=== PATIENT | male | born 1950 | race Caucasian/White ===

== ENCOUNTER 2016-07-25 05:46 | Inpatient (IN) | payer MEDICARE, MEDICAID ==
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
[~2016-07-25] VITALS: Ht 171.4 cm; Wt 79.7 kg
[2016-07-25] VITALS (16 sets, daily range): BP systolic 115–154; BP diastolic 57–91; PULSE 49–113; RESP 14–23; O2SAT 94–100
[~2016-07-25 05:46] MED LIST: AMLO2.5T PO; ASPI-973 PO; Lactated Ringer's 1,000 ML IV ONE; METF1000 PO; METO50TA3 PO; PRAV20TA2 PO
[2016-07-25] MEDS ORDERED: CeFAZolin Inj 2 GM in IV Premix 1 EACH IV ONE (06:00)
[2016-07-25] MEDS ORDERED: Lactated Ringer's 1,000 ML IV ONE ×2 (06:28→08:41)
[2016-07-25] MEDS ORDERED: Acetaminophen IV 1,000 MG in IV Premix 1 EACH IV ONE (06:40)
[2016-07-25 07:02] LABS: Mean Corpuscular Hemoglobin 29.1 pg (27.0-35.0); Mean Corpuscular Volume 86.5 fL (81-100)
[2016-07-25] MEDS ORDERED: Lactated Ringer's 1,000 ML IV SCH (08:32)
[2016-07-25] MEDS ORDERED: Lactated Ringer's 500 ML IV PRN (08:32)
[2016-07-25] MEDS ORDERED: EPHEDrine Sulfate 50 mg/mL Inj IM PRN (08:35)
[2016-07-25] MEDS ORDERED: Labetalol 5 mg/mL 4 mL Inj IV PRN (08:35)
[2016-07-25] MEDS ORDERED: hydrOXYzine Inj 25 MG/1 mL SDV IM PRN (08:35)
[2016-07-25] MEDS ORDERED: Ondansetron 2 mg/mL 2 mL Inj IVPUSH PRN ×2 (08:35→13:20)
[2016-07-25] MEDS ORDERED: Phenylephrine 10,000 mCg/mL Inj IVPUSH PRN (08:35)
[2016-07-25] MEDS ORDERED: EPHEDrine Sulfate 50 mg/mL Inj IVPUSH PRN (08:35)
[2016-07-25] MEDS ORDERED: Atropine 0.4 mg/mL Inj IVPUSH PRN (08:35)
[2016-07-25] MEDS ORDERED: hydrALAZINE 20 mg/mL Inj IVPUSH PRN (08:35)
[2016-07-25] MEDS ORDERED: metroNIDAZOLE Inj 500 MG in IV Premix 1 EACH IV ONE (09:30)
[2016-07-25] MEDS ORDERED: metroNIDAZOLE 500 mg/100 mL NS Premix IV ONE (09:31)
--- NOTE | 2016-07-25 10:16 | DRSVH ---
PROCEDURE: X-RAY CHEST ONE VIEW ([id number]) INDICATIONS: surg hx of smoking patient to arrive @ 0545 TECHNIQUE: One view of the chest was acquired. COMPARISON: [facility], , CHEST 1VW (PORTABLE), 08/24/2010, 7:34. FINDINGS: Surgical changes and devices: Stable positioning of single chamber left chest AICD. Lungs and pleura: No pleural effusions or pneumothorax. Lungs are clear. Mediastinum: Mediastinal contours appear normal. Heart size is normal. Bones and chest wall: No suspicious bony lesions. Overlying soft tissues appear unremarkable. IMPRESSION: No acute cardiopulmonary disease. Dictated by: Arturo BUCHANAN Interpreted: Joselin Rueda MD on 07/25/2016 at 10:15 Transcribed by: ANGELI on 07/25/2016 at 10:15 Approved by: Joselin Rueda M.D. on 07/25/2016 at 16:28
[2016-07-25] MEDS: fentaNYL-PF 50 mCg/mL 2 mL Inj IVPUSH PRN ×2 (13:35→13:46)
[2016-07-25] MEDS: HYDROmorphone 1 mg/mL Inj IVPUSH PRN ×2 (14:05→14:30)
--- NOTE | 2016-07-25 14:21 | PCM.ANEP1 ---
Post Anesthesia Phase 1 PACU Phase 1 Assessment Vital Signs Vital Signs Date Time Temp Pulse Resp B/P Pulse Ox O2 Delivery O2 Flow Rate FiO2 07/25/16 14:14 57 14 152/67 95 Room Air 07/25/16 14:05 58 15 154/85 94 Room Air 07/25/16 13:45 36.0 49 14 140/57 100 Simple Mask 8 07/25/16 13:40 49 14 135/66 100 Simple Mask 8 07/25/16 13:35 57 15 100 Simple Mask 8 07/25/16 13:30 51 15 127/59 100 Simple Mask 8 07/25/16 13:25 52 16 128/57 100 Simple Mask 8 07/25/16 13:23 36.3 60 17 115/89 100 Simple Mask 8 07/25/16 06:52 36 57 17 132/74 96 Room Air Anesthetic Administered: GA Level of Alertness: Sleepy, easy to arouse GREENE's with Equal Strength: No Pain: No Nausea or Vomiting: No Oxygen Delivery: Simple Mask Lungs: Normal Air Movement Guillermo Sparks MD Jul 25, 2016 14:20
[2016-07-25] MEDS: Insulin Human REGular 300 Unit/3 mL Inj SUBQ SCH ×2 (14:30→21:20)
--- NOTE | 2016-07-25 14:45 | NUR ---
Arrived on Unit Patient arrived on floor from PACU in stable condition. Patient transported in bed. A&Ox3. No dressings on incisions. Dermabond used on incisions. AIR/OCEAN EXPORT CLERK set up 0.2/6 minutes/2mg 1 hour and 0.3 bolus. WARRANT SERVER. Reports 03/14 abdominal pain. Contacted RT for IS. Patient up to chair with SBA. Brother at bedside. Call light and tray table within reach. Will continue to monitor patient hourly. Addendum: 07/25/16 at 1853 by GETACHEW STEELE RN Chava brandon. LR at 125 mL/hr
[2016-07-25] MEDS ORDERED: Ondansetron 2 mg/mL 2 mL Inj ONE (14:56)
[2016-07-25] MEDS ORDERED: Rocuronium 10 mg/mL 5 mL Inj ONE (14:56)
[2016-07-25] MEDS ORDERED: HYDROmorphone 2 mg/mL Inj ONE (14:56)
[2016-07-25] MEDS ORDERED: Propofol 10,000 mCg/mL 20 mL Inj ONE (14:56)
[2016-07-25] MEDS ORDERED: fentaNYL-PF 50 mCg/mL 2 mL Inj ONE (14:56)
[2016-07-25] MEDS: Lactated Ringer's 1,000 ML IV SCH ×2 (15:46→21:20)
[2016-07-25] MEDS: HYDROmorphone PCA 0.2 mg/mL 30 mL Inj IV PRN (15:47)
[2016-07-25] MEDS ORDERED: metroNIDAZOLE Inj 500 MG in IV Premix 1 EACH IV SCH (16:30)
[2016-07-25] MEDS ORDERED: CeFAZolin Inj 2 GM in IV Premix 1 EACH IV SCH (16:50)
[2016-07-25] MEDS: CeFAZolin Inj 2 GM in Dextrose 5% 50 ML IV SCH (18:26)
[2016-07-26] VITALS (12 sets, daily range): BP systolic 112–130; BP diastolic 68–79; PULSE 64–97; RESP 18–22; O2SAT 93–98
--- NOTE | 2016-07-26 01:05 | OP ---
[address] [address] OPERATIVE REPORT PATIENT: ESDRAS GARCIA : 1950 MR#: [id number] ADMIT: 07/25/2016 JOB ID: [id number] DATE OF SURGERY: 07/25/2016 PREOPERATIVE DIAGNOSIS(ES): Left renal mass. POSTOPERATIVE DIAGNOSIS(ES): Left renal mass. PROCEDURE PERFORMED: 1. Exploratory laparoscopy. 2. Left open radical nephrectomy (modifier 22 is being requested for severe desmoplastic reaction, requiring over 100% longer procedure time without consideration for the partial colectomy). 3. Left partial colectomy. SURGEON: Harriett Serrano MD. APPARATUS LINEMAN: 1. Mary Alice Calhoun PA-C (at the beginning and termination of the procedure). 2. Daryl Bennett MD, general surgeon. FINDINGS: Large left renal mass adherent with severe desmoplastic reaction anteriorly with the colon, superiorly to the spleen, and posteriorly to the posterior body wall. ANESTHESIA: General. ESTIMATED BLOOD LOSS: 300 mL. DRAINS: Larsen catheter to the bladder. SPECIMENS: 1. Left kidney and mass. 2. Splenic flexure of the colon. 3. Frozen section from the rind adherent to the colon. COMPLICATIONS: Enterotomy. CONDITION: Stable. INDICATION FOR PROCEDURE: The patient is a 66-year-old man with a 10 cm left upper pole renal mass. After reviewing his options the patient wished to undergo a left radical nephrectomy. DESCRIPTION OF PROCEDURE: After informed consent was obtained, the patient was taken to the operating room. A time-out was performed, identifying correct patient, surgical site, and procedure. General anesthesia was smoothly induced. A Larsen catheter was placed in the patient's bladder and set to dependent drainage. He was placed in the right lateral decubitus position and all pressure points were identified and appropriately padded. He was positioned over a gel pad and sin bag. His abdomen and flank were then prepped and draped in usual sterile fashion. In the midclavicular line, two fingerbreadths inferior to the subcostal margin, an incision was made with an 11 blade. A Veress needle was placed in the intraperitoneal cavity as tested by saline drop test. The abdomen was then insufflated. The incision was widened to accommodate a 5 mm trocar. The 5 mm lens demonstrated no inadvertent injury to the intraperitoneal contents. Next, two 10/12 trocars were then placed, triangulated away from this initial trocar site, one in the left lower quadrant midclavicular line and the second superior to his umbilicus. Survey of the intraperitoneal cavity demonstrated the colon pushed anteriorly by the renal mass. The white line of Toldt was incised with Endo Wesley. This was taken up next to the spleen as well as down to the pelvic brim. Dissection was attempted to proceed inferior to the spleen to release the splenorenal ligaments, but it was impossible to do so given the anterior projection of the colon and kidney due to the mass. Dissection proceeded inferiorly working to the posterior body wall. The ureter was seen coursing against it and this was followed up superiorly releasing some of the mesenteric fat from Gerota's fascia. Upon coming up to the renal mass it was seen that the colon was quite adherent to the mass. It was attempted to tease this tissue away with a Thunderbeat and a Kitner. The dissection proceeded superiorly and at this point it was identified that an enterotomy was made as there was a small amount of gross stool visible through the enterotomy. At this time, General Surgery telephone clerk telegraph office was contacted. Dr. Daryl Bennett came to the room, at which point I demonstrated to him the enterotomy. It was decided to proceed in an open fashion. The instruments were removed from the patient's body and he was placed in supine position after removing the gel pad and sin bag. He was placed over the break of the table, which was flexed. All pressure points were again identified and appropriately padded. His abdomen was then prepped and draped in usual sterile fashion. A subcostal incision was made along the inferior aspect of the left subcostal margin two fingerbreadths inferior to it, carrying it about 6 inches wide. The skin was incised with a 10 blade. Bovie electrocautery was used to incise the subcutaneous fascia and muscle. Intraperitoneal access was gained. The Bookwalter was positioned over the patient's body with care being taken to not directly rest it on the patient's body. The survey of the area demonstrated a severe desmoplastic reaction of the colon which was extremely adherent with no identifiable normal tissue planes. The dissection proceeded from the inferior aspect releasing the cone of Gerota's and then laterally as well as posteriorly. It was quite adherent to the psoas muscle superiorly. Upon coming up to the medial aspect the vein was dissected out with a right angle and Bovie electrocautery. The artery was consistent with the CT findings coursing just posterior to it. These were tagged with vessel loops. The artery was ligated with an Endo SHI vascular load. The vein was treated in similar fashion. There was another inferior pole renal vein seen and this was treated with Hem-o-clarisa two on the stay side, one on the go, and sharply ligated. Upon coming up superiorly, the colon just simply could not be released in a normal fashion from the anterior aspect of the kidney. Dr. Bennett will dictate his portion of this procedure. Metzenbaum's were used to the aid in the dissection to push through this desmoplastic rind. Eventually, the colon did come off of it with considerable effort. The frozen section was taken off of the serosal margin of the colon with this rind. The result was negative for malignancy. Coming up to the superior aspect, the lesion was quite adherent to the spleen. It required dividing of the adhesions with Bovie electrocautery a few millimeters at a time. Ultimately, the lesion was released from the spleen. The adrenal gland could be seen at the superior medial aspect. This was taken along with the kidney given that the mass was superior. Working posteriorly and medially the LigaSure device was used to release these adherent adhesions. Eventually, the mass was removed and passed off the table as kidney and mass. The renal fossa was copiously irrigated with several liters of saline, followed by sterile water. There appeared to be excellent hemostasis. Again, Dr. Bennett will dictate his portion of the colectomy. Next, the renal fossa was surveyed again. This verified excellent hemostasis at this point. The fascial layers were closed in two separate layers with looped 0 PDS starting at the medial aspect working laterally. After each layer was closed the wounds were copiously irrigated, and before the fascial layers were closed it should be noted that the two 10/12 port sites were closed from within the abdomen through the fascial layers with 0-Vicryl. Next, the Tc's layer was closed in interrupted fashion with 3-0 Vicryl. The skin was closed with 4-0 Monocryl in running subcuticular fashion. The laparoscopic sites were then closed with 4-0 Monocryl as well and Dermabond was placed over the wound. Patient tolerated procedure well. At the end of the case, all sponge, needle, and instrument counts were correct at the end of procedure. MELINDA
--- NOTE | 2016-07-26 01:06 | OP ---
[address] [address] OPERATIVE REPORT PATIENT: ESDRAS GARCIA : 1950 MR#: [id number] ADMIT: 07/25/2016 JOB ID: [id number] DATE OF SURGERY: 07/25/2016 SURGEON: Daryl Bennett MD. CLINICAL RN: Harriett Serrano MD. ANESTHESIA: General. PREOPERATIVE DIAGNOSIS(ES): Colon injury at the splenic flexure during left nephrectomy. POSTOPERATIVE DIAGNOSIS(ES): Colon injury at the splenic flexure during left nephrectomy. PRINCIPAL PROCEDURE: Mobilization of splenic flexure, segmental resection of the splenic flexure of colon with primary anastomosis. INDICATION FOR PROCEDURE: The patient is a 66-year-old male with a left renal tumor who was scheduled for a laparoscopic left nephrectomy today with Dr. Serrano. During the mobilization of the tumor, due to extensive adhesions and desmoplstic reaction to the colon, an iatrogenic colotomy was created. General surgery consultation intraoperatively was obtained. The procedure was converted to open. I helped with the left nephrectomy and performed a mobilization of the splenic flexure, segmental resection of the splenic flexure of colon, primary anastomosis. PROCEDURE COURSE: The patient was undergoing a laparoscopic left nephrectomy procedure when the consultation was requested. The procedure was converted to an open procedure. A left subcostal incision was made. First, the colotomy site was identified and I placed interrupted sutures to prevent further spillage. With the colotomy controlled, we proceeded with the nephrectomy. Please refer to Dr. Serrano's dictation for the nephrectomy procedure. The colon was densely adhesed to the superior medial aspect of the tumor. I was able to mobilize the splenic flexure first using the LigaSure device and also cautery. I was able to detach the splenic flexure away from the tumor. With the left kidney out of the way and with the colon completely mobilized and up in the air, we were able to clearly visualize the site of the injury. Given that there was injury, plus a rim of tumor or desmoplastic reaction tissue right on the colon, we decided to perform a segmental resection. SHI staplers were applied proximal and distal to the site of injury and where there was no evidence of residual tumor on the colon. The specimen was marked with a stitch indicating the proximal margin. The specimen consisted of an approximately 3 inches of splenic flexure of the colon. Next, the two ends of the colon were placed [id number] and a functional end-to-end primarily anastomosis was achieved using SHI staplers. The common opening was also closed using the stapler. A crotch stitch was placed at the end of the staple line and the common channel stale line was also imbricated using silk sutures. The anastomosis appeared to be patent. Next, copious irrigation of the abdomen was carried out. Hemostasis was verified. The remainder of the case was turned over back to Dr. Serrano, who performed the abdominal wall closure. Please refer to her dictation for the fascial closure and skin closure. MELINDA
[2016-07-26] MEDS: metroNIDAZOLE Inj 500 MG in IV Premix 1 EACH IV SCH ×2 (02:04→08:52)
[2016-07-26] MEDS: Insulin Human REGular 300 Unit/3 mL Inj SUBQ SCH ×4 (02:30→20:30)
[2016-07-26] MEDS: CeFAZolin Inj 2 GM in Dextrose 5% 50 ML IV SCH (05:08)
[2016-07-26] MEDS: Lactated Ringer's 1,000 ML IV SCH ×3 (05:20→21:52)
[2016-07-26 06:11] LABS: Mean Corpuscular Hemoglobin 28.6 pg (27.0-35.0); Mean Corpuscular Volume 86.8 fL (81-100)
--- NOTE | 2016-07-26 06:25 | NUR ---
Pain Patient c/o uncontrollable pain, this RN and an additional RN increased SPECIAL EDUCATION INCLUSION TEACHER from 0.2 mg every 6 minutes not to exceed 2 mg / hour to 0.3 mg every 6 minutes. SPECIAL EDUCATION INCLUSION TEACHER may be increased to 0.4mg. VSS at this time.
--- NOTE | 2016-07-26 07:16 | PCM.ANEP2 ---
Post Anesthesia Evaluation ASA/CMS Post Anesthesia VS in Patient's Normal Range?: Yes Resp Stable; Airway Patent?: Yes CV Function & Hydration Stable: Yes Mental Status Recovered?: Yes Pain control Satisfactory?: Yes N/V Control Satisfactory?: Yes Guillermo Sparks MD Jul 26, 2016 07:16
--- NOTE | 2016-07-26 08:23 | PCM.PNSURG ---
Subjective Visit Information: Reason for Visit Left Renal Mass Surgery/Surgery Date Post-Op Day # Date of Admission: Jul 25, 2016 at 14:55 Hospital Day # Subjective: c/o pain this am; no flatus yet, burping though, on ice chips Objective Objective Awake in bed Abd: incisions clean Vital Sign- Last 8 Hours Date Time Temp Pulse Resp B/P Pulse Ox O2 Delivery O2 Flow Rate FiO2 07/26/16 05:12 36.4 93 22 119/77 94 Room Air 07/26/16 02:09 36.8 96 20 116/74 96 Room Air 07/26/16 02:00 20 96 Intake and Output- Last 8 Hour 07/26/16 Cumulative From/Thru 07:00 07/22/16 11:51 - 07/26/16 05:12 Intake Total 0 ml 2850 ml Output Total 400 ml 1330 ml Balance -400 ml 1520 ml Intake Oral 0 ml 100 ml IV Total 2750 ml Output Urine Total 400 ml 1030 ml Estimated Blood Loss 300 ml # Bowel Movements 0 0 Result Diagram: 07/26/16 0520 07/26/16 0520 Assessment & Plan Impression POD #1 s/p L nephrectomy and segmental colon resection Problems: Plan Continue SENIOR ENLISTED ADVISOR Await bowel function return OOB/ambulate if possible Will discuss with primary team re: SQ heparin or lovenox Daryl Bennett MD Jul 26, 2016 08:23
--- NOTE | 2016-07-26 08:50 | PCM.PNSURG ---
Subjective Date of Service: Jul 26, 2016 Date of Service: Jul 26, 2016 Visit Information: Reason for Visit Left Renal Mass Surgery/Surgery Date Post-Op Day # 1 Date of Admission: Jul 25, 2016 at 14:55 Hospital Day # 2 Subjective: Mr Harrison reports 8/10 pain. He denies n/v on sips/chips. He has not ambulated. He has not yet performed IS. 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 Objective Vital Sign- Last 8 Hours Date Time Temp Pulse Resp B/P Pulse Ox O2 Delivery O2 Flow Rate FiO2 07/26/16 08:31 94 20 93 Room Air 07/26/16 05:12 36.4 93 22 119/77 94 Room Air 07/26/16 02:09 36.8 96 20 116/74 96 Room Air 07/26/16 02:00 20 96 Intake and Output- Last 8 Hour 07/26/16 Cumulative From/Thru 07:00 07/22/16 11:51 - 07/26/16 05:12 Intake Total 0 ml 2850 ml Output Total 400 ml 1330 ml Balance -400 ml 1520 ml Intake Oral 0 ml 100 ml IV Total 2750 ml Output Urine Total 400 ml 1030 ml Estimated Blood Loss 300 ml # Bowel Movements 0 0 General: Alert Abdomen: Soft, Appropriately tender (wounds are c/d/i ) Extremities: Warm Neuro: Cranial Nerves 2-12 nl Catheters: Urethral 2 Way Lao Result Diagram: 07/26/16 0520 07/26/16 0520 Assessment & Plan Impression POD# 1 LEFT radical Nx, segmental colon resection Problems: Plan I directed Mr Harrison re the importance of ambulation and IS - I instructed him on goals for today - I also advised the student nurse the goals for today I very much appreciate Dr Emmanuel Bennett's co-management - I will follow his recommendations re diet - I agree with Lovenox or Heparin; will contact his office Tomorrow: - Remove lao--he does not feel ready today - CBC/BMP Harriett Serrano MD Jul 26, 2016 08:50
--- NOTE | 2016-07-26 16:14 | NUR ---
Social Work-attempted assessment: Data:Pt is a 66 y/o male who was admitted on 07/25/16 for left renal mass per H&P. Pt's insurance is [facility] and [facility] and PCP is Doc Vázquez MD. EMR reviewed. SW attempted to meet with pt, but RN currently in the room. SW to follow up with pt tomorrow to complete assessment. SW will continue to follow. Assessment:Pt who is independent at baseline. Plan:SW to follow tomorrow and complete assessment. SW will continue to follow. KESHA Bond
[2016-07-26] MEDS: Heparin 5,000 Unit/mL Inj SUBQ SCH (16:52)
[2016-07-26] MEDS: HYDROmorphone PCA 0.2 mg/mL 30 mL Inj IV PRN (18:24)
[2016-07-27] VITALS (10 sets, daily range): BP systolic 128–149; BP diastolic 60–81; PULSE 74–84; RESP 16–20; O2SAT 91–98
[2016-07-27] MEDS: Heparin 5,000 Unit/mL Inj SUBQ SCH ×3 (00:42→16:44)
[2016-07-27] MEDS: Insulin Human REGular 300 Unit/3 mL Inj SUBQ SCH ×4 (02:30→20:30)
--- NOTE | 2016-07-27 02:35 | NUR ---
Activity Patient bedrest this shift. Using DEBONER for pain. Patient taking ice chips only. VSS. Call light within reach. Care continues.
[2016-07-27] MEDS: HYDROmorphone PCA 0.2 mg/mL 30 mL Inj IV PRN (03:18)
[2016-07-27] MEDS: Lactated Ringer's 1,000 ML IV SCH ×3 (06:03→14:15)
[2016-07-27 06:04] LABS: Mean Corpuscular Hemoglobin 29.3 pg (27.0-35.0); Mean Corpuscular Volume 89.5 fL (81-100)
--- NOTE | 2016-07-27 10:04 | PCM.PNSURG ---
Subjective Date of Service: Jul 27, 2016 Date of Service: Jul 27, 2016 Visit Information: Reason for Visit: Colon injury at the splenic flexure during left nephrectomy. Surgery: S/P L nephrectomy and segmental colon resection Surgery Date : 07/25/16 Post-Op Day # 2 Date of Admission: Jul 25, 2016 at 14:55 Subjective: The patient is sitting up in chair in dark room. C/O RUQ pain (incisional). Denies flatus or bowel activity on ice chips Gastrointestinal: No N/V, No Belching Pain Management: LIBRARY CIRCULATION CLERK without Basal Postop Activity: Ambulating in Room Only (minimal only to chair) Objective Vital Sign- Last 8 Hours Date Time Temp Pulse Resp B/P Pulse Ox O2 Delivery O2 Flow Rate FiO2 07/27/16 08:04 74 20 128/60 94 Nasal Cannula 2.00 07/27/16 06:31 16 98 07/27/16 04:58 16 98 Intake and Output- Last 8 Hour 07/27/16 Cumulative From/Thru 07:00 07/22/16 11:51 - 07/27/16 06:30 Intake Total 2390 ml 6951 ml Output Total 500 ml 2280 ml Balance 1890 ml 4671 ml Intake Oral 0 ml 100 ml IV Total 2390 ml 6851 ml Output Urine Total 500 ml 1980 ml Estimated Blood Loss 300 ml # Bowel Movements 0 0 General: Alert, Oriented X3, Mild Distress, Other (looks uncomfortable) Lungs: Clear to Auscultation Heart: Regular Rate/Rhythm Abdomen: Soft, Appropriately tender, Non-distended, Other (No bowel tones) Extremities: Thigh&Calf Soft/Nontender Neuro: Cranial Nerves 2-12 nl Catheters: None Result Diagram: 07/27/1615 07/27/1615 Assessment & Plan Impression Primary diagnosis: Left renal mass Secondary diagnosis: Diabetes mellitus type II HTN Hx irregualr rhythm VT AICD 2010 Dyslipidemia Former smoker Substance abuse (marijuana) Problems: Plan Continue LIBRARY CIRCULATION CLERK Await bowel function return to advance to clear diet OOB/ambulate if possible Rissa Ramsey PA-C Jul 27, 2016 10:04
--- NOTE | 2016-07-27 11:21 | NUR ---
Social Work-initial assessment: Data:See initial assessment. Pt is a 66 y/o male who was admitted on 07/25/16 for left renal mass per H&P. Pt's insurance is [employer] and PCP is Doc Vázquez MD. EMR Reviewed. Pt's readmission score is 2. SW met with pt at bedside to discuss discharge planning, SW role explained. Pt is alert and oriented x3. Pt resides at home alone in [place] where he remains independent with ADLS. Pt does not use any DME and drives. Pt has no history with HH or SNF. Pt has no termite helper care insurance or VA benefits. SW discussed DPOA/advanced directive, Pt states he has not completed this and is not interested in any information at this time. Pt anticipates to return home. Pt's brother to provide transport at discharge. SW to follow for any HH needs. SW provided phone number and plan on white board in room. F2F in folder. SW will continue to follow. Assessment:Pt who is independent at baseline. Plan:Pt to likely discharge home when medically stable via POV. R/O HH services. F2F in folder. SW will continue to follow. KESHA Bond Addendum: 07/27/16 at 1129 by KASIA RUST Amended: Links added.
--- NOTE | 2016-07-27 14:00 | NUR ---
resp pt c/o SOB this am, "I not taking the pain medicine as much because it makes it hard to breath" Lungs sounds clear, slightly SOB with exertion, walked in sanchez and tolerated well though. coughed up small amt phlegm brownish-black colored(old blood)
--- NOTE | 2016-07-27 16:30 | NUR ---
UOP pt unable to void all shift. Bladder scan ed 575cc, and pt getting very uncomfortable, received order from Dr Serrano to straight cath, returned 525cc
--- NOTE | 2016-07-27 17:08 | PCM.PNSURG ---
Subjective Date of Service: Jul 27, 2016 Date of Service: Jul 27, 2016 Visit Information: Reason for Visit Left Renal Mass Surgery/Surgery Date Post-Op Day # 2 Date of Admission: Jul 25, 2016 at 14:55 Hospital Day #3 Subjective: Pt lying in bed during exam. He has been ambulating in the room only. He reports using IS. He denies any n/v at this time. He denies passing any flatus, but does report tolerating ice chips. He c/o incisional pain at RUQ. He has not been able to void all day, he reports he has been trying but is frustrated at this time. Postop General: No Shortness of Breath, No Chest Pain Gastrointestinal: No N/V, No Belching Pain Management: TREE AND SHRUB WORKER without Basal Postop Activity: Ambulating in Room Only Objective Vital Sign- Last 8 Hours Date Time Temp Pulse Resp B/P Pulse Ox O2 Delivery O2 Flow Rate FiO2 07/27/16 16:37 37.0 84 18 149/81 92 Room Air 07/27/16 12:20 37.1 81 16 137/76 91 Room Air 07/27/16 10:33 75 07/27/16 10:15 Supplement Oxygen Intake and Output- Last 8 Hour 07/27/16 Cumulative From/Thru 07:00 07/22/16 11:51 - 07/27/16 06:30 Intake Total 2390 ml 6951 ml Output Total 500 ml 2280 ml Balance 1890 ml 4671 ml Intake Oral 0 ml 100 ml IV Total 2390 ml 6851 ml Output Urine Total 500 ml 1980 ml Estimated Blood Loss 300 ml # Bowel Movements 0 0 General: Alert, Oriented X3, No Acute Distress Neck: Supple Lungs: Normal Air Movement Abdomen: Soft, Appropriately tender, Non-distended, Other (no bowel tones on exam) Extremities: Distal Pulses Palpable Neuro: Grossly Neurologically Intact Catheters: None Result Diagram: 07/27/1615 07/27/16514 Assessment & Plan Impression POD #2 LEFT radical nephrectomy with segmental colon resection Problems: Plan We discussed importance of ambulation and IS - I instructed him on goals for today We continue to appreciate Dr Emmanuel Bennett's co-management - Will follow his recommendations re diet, pt still denies passing any flatus at this time. Larsen: Was removed this AM, pt has not been able to void all day and was frustrated about urination during visit. Stressed the importance of attempting to void every 2-3 hours, and discussed with pt and RN that if PVR >400mL this evening, will need to replace catheter. Mary Alice Calhoun PA-C Jul 27, 2016 17:08
[2016-07-28] VITALS (13 sets, daily range): BP systolic 134–166; BP diastolic 68–76; PULSE 64–87; RESP 16–22; O2SAT 90–97
[2016-07-28] MEDS: Heparin 5,000 Unit/mL Inj SUBQ SCH ×3 (00:33→16:41)
--- NOTE | 2016-07-28 01:32 | NUR ---
UNABLE TO VOID: Pt. attempted to void, voided 10 ml only, feeling a lot of pressure in his bladder, pt. in a lot of discomfort. Bladder scan done 426 ml in bladder. Paged chaperon MD Dr. Bennett, new order place Larsen catheter 16/18 jamaican and leave in. Done as ordered. Pt. tolerated procedure well. Gave bolos from FIELD SERVICE TECH previous to Larsen insertion. Pt. states feeling better almost immediately after Larsen placement. Draining erin urine. On going care.
[2016-07-28] MEDS: Insulin Human REGular 300 Unit/3 mL Inj SUBQ SCH ×4 (02:30→20:30)
--- NOTE | 2016-07-28 02:57 | NUR ---
Urine Retention At approximately 2230, patient stated that he felt very uncomfortable and appeared distressed because he could not void. He stated that the straight catheter procedure helped him earlier in the evening. Patient requested procedure to be done again. Supplies were gathered and attempt made. Unable to advance lao catheter into urethra. Lao kept spiraling. Hard straight catheter used and was successful. Patient voided 425cc of urine. Post insertion, bladder scan revealed 426 residual. Patient requested to wait until 00[address] Bennett was called to request re-insertion of lao catheter . Order was given via TO to re-insert.
[2016-07-28] MEDS: Lactated Ringer's 1,000 ML IV SCH ×3 (06:31→21:06)
--- NOTE | 2016-07-28 07:35 | PCM.PNSURG ---
Subjective Visit Information: Reason for Visit Left Renal Mass Surgery/Surgery Date Post-Op Day # Date of Admission: Jul 25, 2016 at 14:55 Hospital Day # Subjective: feels better, using less LUBRICATING SPECIALIST, getting hungry, been burping, no flatus yet; lao was reinserted Objective Objective Arousable in bed Abd: soft, incision clean, only mildly distended Vital Sign- Last 8 Hours Date Time Temp Pulse Resp B/P Pulse Ox O2 Delivery O2 Flow Rate FiO2 07/28/16 06:10 17 97 07/28/16 06:05 36.8 79 17 141/70 97 Room Air 07/28/16 05:52 64 07/27/16 23:51 36.6 80 17 139/74 97 Room Air Intake and Output- Last 8 Hour 07/28/16 Cumulative From/Thru 07:00 07/22/16 11:51 - 07/28/16 06:10 Intake Total 1652 ml 58872 ml Output Total 1135 ml 3940 ml Balance 517 ml 6068 ml Intake Oral 0 ml 200 ml IV Total 1652 ml 9808 ml Output Urine Total 1135 ml 3640 ml Estimated Blood Loss 300 ml # Bowel Movements 0 0 Result Diagram: 07/27/16 0515 07/27/16 0515 Assessment & Plan Impression POD #3 s/p L nephrectomy and partial colectomy DM Problems: Plan Continue with ice chips Ambulate Await bowel function Decrease LUBRICATING SPECIALIST use if possible VTE Prophylaxis: Sub-Q Heparin (Unfractionated) Daryl Bennett MD Jul 28, 2016 07:35
--- NOTE | 2016-07-28 08:43 | PCM.PNSURG ---
Subjective Date of Service: Jul 28, 2016 Date of Service: Jul 28, 2016 Visit Information: Reason for Visit Left Renal Mass Surgery/Surgery Date Post-Op Day # 3 Date of Admission: Jul 25, 2016 at 14:55 Hospital Day # 4 Subjective: Mr Harrison stated most of his pain problems overnight were due to urinary retention, and he feels much better after indwelling was placed. He has not passed flatus. He ambulates. He is working on IS. His incision pain is improved. Postop General: No Complaints Gastrointestinal: No N/V Pain Management: SHAKE SAWYER without Basal Postop Activity: Ambulate with Assist Objective Vital Sign- Last 8 Hours Date Time Temp Pulse Resp B/P Pulse Ox O2 Delivery O2 Flow Rate FiO2 07/28/16 06:10 17 97 07/28/16 06:05 36.8 79 17 141/70 97 Room Air 07/28/16 05:52 64 Intake and Output- Last 8 Hour 07/28/16 Cumulative From/Thru 07:00 07/22/16 11:51 - 07/28/16 06:10 Intake Total 1652 ml 86005 ml Output Total 1135 ml 3940 ml Balance 517 ml 6068 ml Intake Oral 0 ml 200 ml IV Total 1652 ml 9808 ml Output Urine Total 1135 ml 3640 ml Estimated Blood Loss 300 ml # Bowel Movements 0 0 General: Alert Abdomen: Benign, Appropriately tender, Other (wounds are c/d/i w/o erythema) Extremities: Warm Neuro: Cranial Nerves 2-12 nl Catheters: Urethral 2 Way Lao (clear yellow) Result Diagram: 07/27/16 0515 07/27/16 0515 Assessment & Plan Impression POD#3 LEFT radical Nx and segmental colon resection Problems: Plan Await bowel function. IS Ambulate Continue lao; will likely continue as outpt given high residual SHAKE SAWYER AM labs VTE Prophylaxis: Sub-Q Heparin (Unfractionated) Harriett Serrano MD Jul 28, 2016 08:43
--- NOTE | 2016-07-28 08:54 | NUR ---
NUTRITION ASSESSMENT: ASSESS: Pt is a 66yo M admitted for left renal mass. He is POD 3 s/p L nephrectomy and partial colectomy. Pt has been NPOx3 days. Currently awaiting bowel function to return. Pt reporting that his appetite is starting to return. PMHX: DM, HTN LABS: Reviewed. Starch Crab 1.50, Glu 119, Ca 8.2 MEDS: Reviewed. GI: 0 BM yet SKIN: Logan 19 CURRENT WTS: 77.3kg, BMI 26.3kg/m2, admit wt 77.5kg DIET: NPOx3 days EST. NEEDS: Kcals: 1930-2320kcal/day (25-30kcal/kg) Pro: 75-90g/day (1.0-1.2g/kg) NUTRITION DIAGNOSIS: 1.) Inadequate oral intake related to decreased ability to consume sufficient energy as evidenced by current NPO status. NUTRITION INTERVENTION: 1.) Recommend advance diet when medically appropriate MONITOR / EVAL: NPO, GI, labs, wt, POC, nutrition status. Will continue to monitor per high nutrition risk guidelines
--- NOTE | 2016-07-28 11:55 | NUR ---
Social Work Readiness for Discharge: SW met with patient at bedside to discuss discharge plan. Patient states residing home alone in [place]. Patient states being independent with needs. Per report from Rn, patient independent and ambulating. Patient doesn't meet homebound criteria for [facility] services at this time. Patient states having support from neighbors to check in and assist with care. SW will continue to follow pending further clinical course. PLAN: Home alone via POV. SW will continue to follow pending clinical course Ivory REBOLLEDO
[2016-07-28] MEDS: HYDROmorphone PCA 0.2 mg/mL 30 mL Inj IV PRN (18:34)
--- NOTE | 2016-07-28 19:09 | NUR ---
Pain Patient continues to have some pain in the operative area this shift. Patient states that DISTRIBUTOR CLEANER keeps pain within tolerable level. Patient reported increase in pain after ambulation, bolus dose given. Patient reports pain subsided shortly thereafter. Care is ongoing.
[2016-07-29] VITALS (11 sets, daily range): BP systolic 157–170; BP diastolic 75–88; PULSE 68–87; RESP 16–18; O2SAT 93–98
[2016-07-29] MEDS: Heparin 5,000 Unit/mL Inj SUBQ SCH ×3 (00:55→15:49)
--- NOTE | 2016-07-29 01:13 | NUR ---
LLQ Pain Patient complains of left lower quadrant pain this evening. Patient states that this is different from the incisional pain, and believes it to be gas, but has been unable to pass any at this time. Patient encouraged and educated to get up and go for a walk, but patient refused. Will continue to encouraged activity to assist with passing gas. Care continues.
[2016-07-29] MEDS: Insulin Human REGular 300 Unit/3 mL Inj SUBQ SCH ×4 (02:07→20:44)
[2016-07-29] MEDS: Lactated Ringer's 1,000 ML IV SCH ×2 (04:11→12:46)
[2016-07-29 05:34] LABS: BASOPHILS % (AUTO) 0.2 % (0-3); Mean Corpuscular Hemoglobin 29.1 pg (27.0-35.0); Mean Corpuscular Volume 88.4 fL (81-100); NEUTROPHILS % (AUTO) 72.1 % (40-74); Platelet Count 200 bil/L (150-400)
[2016-07-29] MEDS: HYDROmorphone PCA 0.2 mg/mL 30 mL Inj IV PRN ×2 (07:40→19:59)
--- NOTE | 2016-07-29 08:04 | PCM.PNSURG ---
Subjective Date of Service: Jul 29, 2016 Date of Service: Jul 29, 2016 Visit Information: Reason for Visit Left Renal Mass Surgery/Surgery Date Post-Op Day # 4 Date of Admission: Jul 25, 2016 at 14:55 Hospital Day # 5 Subjective: Mr Harrison states he feels ready to pass flatus but hasn't yet--he can detect "rumbles" this morning. Pain is controlled on HEALTH CENTER MANAGER of dilaudid (lower dose started yesterday at 0.2-10-0). He states is ambulates. Larsen is draining his bladder. He denies n/v. Gastrointestinal: No N/V Pain Management: HEALTH CENTER MANAGER without Basal Postop Activity: Ambulate with Assist Objective Vital Sign- Last 8 Hours Date Time Temp Pulse Resp B/P Pulse Ox O2 Delivery O2 Flow Rate FiO2 07/29/16 05:32 36.8 73 17 159/82 94 Room Air 07/29/16 04:51 80 Intake and Output- Last 8 Hour 07/29/16 Cumulative From/Thru 07:00 07/22/16 11:51 - 07/29/16 05:31 Intake Total 2808 ml 30552 ml Output Total 1400 ml 5940 ml Balance 1408 ml 8483 ml Intake Oral 0 ml 200 ml IV Total 2808 ml 87514 ml Output Urine Total 1400 ml 5640 ml Estimated Blood Loss 300 ml # Bowel Movements 0 0 General: Alert Abdomen: Soft, Distended (softly distended, moderately) Extremities: Warm Neuro: Cranial Nerves 2-12 nl Catheters: Urethral 2 Way Larsen Result Diagram: 07/29/16 0520 07/29/16 0520 Assessment & Plan Impression POD# 4 LEFT open radical Nx and segmental colon resection Problems: Plan Hct a bit down today, likely d/t mobilizing interstitial fluids - Will check H/H tomorrow Cr trending down - Will stop checking BMP from urologic standpoint We discussed ambulating and IS diligently Hopefully, he will have return of bowel function/flatus shortly VTE Prophylaxis: Sub-Q Heparin (Unfractionated) Harriett Serrano MD Jul 29, 2016 08:04
--- NOTE | 2016-07-29 09:25 | PCM.PNSURG ---
Subjective Date of Service: Jul 29, 2016 Visit Information: Reason for Visit Left Renal Mass Surgery/Surgery Date Post-Op Day # 4 Date of Admission: Jul 25, 2016 at 14:55 Hospital Day # Subjective: Complains of diffuse abdominal pain greatest on the left related to gas. Feels that he is about to pass gas, no flatus or bowel movement so far. Denies nausea or vomiting. Using COCOA PRESS OPERATOR with equivocal pain control. Ambulating in the hallway without assistance. Postop General: Other (as above) Gastrointestinal: No N/V Pain Management: COCOA PRESS OPERATOR without Basal Postop Activity: Ambulating Independently Objective Vital Sign- Last 8 Hours Date Time Temp Pulse Resp B/P Pulse Ox O2 Delivery O2 Flow Rate FiO2 07/29/16 07:50 77 07/29/16 05:32 36.8 73 17 159/82 94 Room Air 07/29/16 04:51 80 Intake and Output- Last 8 Hour 07/29/16 Cumulative From/Thru 07:00 07/22/16 11:51 - 07/29/16 05:31 Intake Total 2808 ml 14900 ml Output Total 1400 ml 5940 ml Balance 1408 ml 8483 ml Intake Oral 0 ml 200 ml IV Total 2808 ml 16426 ml Output Urine Total 1400 ml 5640 ml Estimated Blood Loss 300 ml # Bowel Movements 0 0 General: Alert, Cooperative, Mild Distress Lungs: Clear to Auscultation Heart: Regular Rate/Rhythm Abdomen: Soft, Appropriately tender, Guarding, Non-distended SURGICAL WOUND : Wound General Appearence: Sutures, Intact, Well Approximated, No Erythema, No Discharge Extremities: Thigh&Calf Soft/Nontender Neuro: Normal Speech Catheters: Urethral [address] Way Larsen Result Diagram: 07/29/16 0520 07/29/16 0520 Assessment & Plan Impression Primary diagnoses: 1. Colon injury at the splenic flexure during left nephrectomy. POD #4 following segmental colon resection with anastomosis. No return of bowel function. 2. Left renal mass. POD #4 following left nephrectomy, pathology pending. Other diagnoses: 1. Diabetes mellitus, type II 2. Bicuspid aortic valve 3. Ventral septal defect 4. Coarctation of the aorta, repaired at age 6 [address] [facility] single-chamber AICD implantation, June 2009 6. Right bundle-branch block 7. Hypertension 8. Hyperlipidemia 9. Noncritical coronary artery disease 10. Former cigarette smoker Problems: Plan Clear liquids as tolerated Pain Management: COCOA PRESS OPERATOR VTE Prophylaxis: Sub-Q Heparin (Unfractionated) Resuscitation Status: CPR: Attempt Resuscitation Ted Alejandre PA-C Jul 29, 2016 09:25
--- NOTE | 2016-07-29 11:23 | NUR ---
NUTRITION FOLLOW-UP: ASSESS: Pt is a 66yo M admitted for left renal mass. He is POD 4 s/p L nephrectomy and partial colectomy. Diet advanced to clear liquids today (NPO/Clear liquids x4 days). No flatus or BM noted yet, however pt feels like he may pass gas soon. Denies any nausea. PMHX: DM, HTN LABS: Reviewed. Cr 1.29, Glu 115, Ca 7.9 MEDS: Reviewed. GI: 0 BM yet SKIN: Logan 19 CURRENT WTS: 77.5kg, BMI 26.4kg/m2, admit wt 77.5kg DIET: Clear liquids, No PO yet EST. NEEDS: Kcals: 1930-2320kcal/day (25-30kcal/kg) Pro: 75-90g/day (1.0-1.2g/kg) NUTRITION DIAGNOSIS: 1.) Inadequate oral intake related to decreased ability to consume sufficient energy as evidenced by current NPO status.---PERSISTS NUTRITION INTERVENTION: 1.) Ensure clear added to all trays while on clear liquid diet. 2.) If unable to advance diet past clear liquids in 1-2 days, recommend nutrition support. MONITOR / EVAL: Diet adv.mari, GI, labs, wt, POC, nutrition status. Will continue to monitor per high nutrition risk guidelines
[2016-07-30] VITALS (13 sets, daily range): BP systolic 133–163; BP diastolic 75–90; PULSE 64–91; RESP 16–20; O2SAT 90–98
[2016-07-30] MEDS: Lactated Ringer's 1,000 ML IV SCH ×3 (00:10→22:27)
[2016-07-30] MEDS: Heparin 5,000 Unit/mL Inj SUBQ SCH ×3 (00:10→17:22)
[2016-07-30] MEDS: Insulin Human REGular 300 Unit/3 mL Inj SUBQ SCH ×4 (01:28→20:30)
--- NOTE | 2016-07-30 05:14 | NUR ---
Abdominal discomfort Patient continues to experience pain in the LLQ, as well as some referred gas pain. Patient denies being able to pas gas yet at this time. Hypoactive bowel tones were present when auscultated. Patient ambulated hallway this evening with RETAIL AGENT. Will continue to monitor, and continue Q 1 hour checks.
[2016-07-30] MEDS: HYDROmorphone PCA 0.2 mg/mL 30 mL Inj IV PRN ×2 (06:21→18:04)
--- NOTE | 2016-07-30 08:26 | PCM.PNSURG ---
Subjective Visit Information: Reason for Visit Left Renal Mass Surgery/Surgery Date Post-Op Day # Date of Admission: Jul 25, 2016 at 14:55 Hospital Day # Subjective: feels a lot of rumblings but no flatus yet, tolerated clears so far, been using a bit of the PROCESSING ENGINEER due to gas pain Objective Objective Awake up in chair Abd: not distended, soft, incision clean Vital Sign- Last 8 Hours Date Time Temp Pulse Resp B/P Pulse Ox O2 Delivery O2 Flow Rate FiO2 07/30/16 05:33 36.5 90 16 133/82 96 Nasal Cannula 2.00 07/30/16 05:30 91 Intake and Output- Last 8 Hour 07/30/16 Cumulative From/Thru 07:00 07/22/16 11:51 - 07/30/16 05:32 Intake Total 1520 ml 93465 ml Output Total 1300 ml 8540 ml Balance 220 ml 9815 ml Intake Oral 620 ml 1920 ml IV Total 900 ml 09351 ml Output Urine Total 1300 ml 8240 ml Estimated Blood Loss 300 ml # Bowel Movements 0 0 Result Diagram: 07/30/16 0547 07/29/16 0520 Assessment & Plan Impression POD #5 s/p L nephrectomy and segmental colon resection Problems: Plan Continue clears Will get a KUB xray today Ambulate Minimize PROCESSING ENGINEER use if possible VTE Prophylaxis: Sub-Q Heparin (Unfractionated) Resuscitation Status: CPR: Attempt Resuscitation Daryl Bennett MD Jul 30, 2016 08:26
--- NOTE | 2016-07-30 09:43 | DRSVH ---
PROCEDURE: X-RAY KUB ([id number]) INDICATIONS: postop ileus TECHNIQUE: One view of the abdomen acquired. COMPARISON: [facility], CR, XR CHEST 1VW, 07/25/2016, 5:54. FINDINGS: Surgical changes and devices: Pacemaking device with single chamber lead extending to the expected po sition of the right ventricular apex. Bowel: Bowel gas pattern is near normal, with mild prominence of several small bowel loops over the mid abdomen. Soft tissues: No suspicious abdominal calcifications. Visualized solid organ contours appear normal in size. Note is made of relatively dense opacification behind the heart representing either atelec tasis or pneumonia, versus aspiration. This was not present 07/25/16 Bones: No suspicious bony lesions. IMPRESSION: Mild small bowel ileus. There is a new finding of dense opacification behind the heart n ot present 07/25/16. Presumably this is aspiration or pneumonia in this clinical circumstance. Sligh t amount free air beneath the diaphragm, consistent with reported postsurgical status. Dictated by: Kevyn Tran M.D. on 07/30/2016 at 9:36 Approved by: Kevyn Tran M.D. on 07/30/2016 at 9:42
--- NOTE | 2016-07-30 10:38 | NUR ---
GUSTAVO signed. Asia Luna CLOTH TESTER QUALITY
--- NOTE | 2016-07-30 11:14 | PCM.PNSURG ---
Subjective Date of Service: Jul 30, 2016 Date of Service: Jul 30, 2016 Visit Information: Reason for Visit Left Renal Mass Surgery/Surgery Date Post-Op Day # 5 Date of Admission: Jul 25, 2016 at 14:55 Hospital Day # 6 Subjective: Mr Harrison states he has come close to passing gas, but he hasn't yet. He reports ambulating in the halls, having done so twice today. He states he is practicing his IS. He is tolerating CLD w/o n/v. He states his pain is about 7/ 10 and feels it more in the LLQ rather than along the main incision. Postop General: No Shortness of Breath, No Chest Pain Gastrointestinal: No N/V Pain Management: DIGITAL INTERN without Basal Postop Activity: Ambulate with Assist Objective Vital Sign- Last 8 Hours Date Time Temp Pulse Resp B/P Pulse Ox O2 Delivery O2 Flow Rate FiO2 07/30/16 10:04 36.7 78 16 163/90 95 Room Air 07/30/16 08:59 82 07/30/16 08:27 16 93 07/30/16 05:33 36.5 90 16 133/82 96 Nasal Cannula 2.00 07/30/16 05:30 91 Intake and Output- Last 8 Hour 07/30/16 Cumulative From/Thru 07:00 07/22/16 11:51 - 07/30/16 05:32 Intake Total 1520 ml 67520 ml Output Total 1300 ml 8540 ml Balance 220 ml 9815 ml Intake Oral 620 ml 1920 ml IV Total 900 ml 49524 ml Output Urine Total 1300 ml 8240 ml Estimated Blood Loss 300 ml # Bowel Movements 0 0 General: Alert Abdomen: Benign, Distended (softly and moderately distended), Other (wounds are c/d/i w/o erythema) Extremities: Warm Neuro: Cranial Nerves 2-12 nl Catheters: Urethral 2 Way Lao Result Diagram: 07/30/16 0547 07/29/16 0520 Assessment & Plan Impression POD# 5 LEFT radical Nx and segmental colectomy Problems: Plan Ambulate IS DIGITAL INTERN settings are 0.2/10/0 CLD No labs from urology standpoint tomorrow Very much appreciate general surgery mgt of diet Continue lao catheter We reviewed his pathology results today - We discussed the nature of his staging - He understands he will require diligent f/u - The spine lesion will continue f/u as outpt: we discussed that a differential , of course, could be metastatic lesion, though it's not a leading differential. We reviewed as we did prior to surgery that this would not have changed the recommendation for radical Nx. VTE Prophylaxis: Sub-Q Heparin (Unfractionated) Resuscitation Status: CPR: Attempt Resuscitation Harriett Serrano MD Jul 30, 2016 11:14
--- NOTE | 2016-07-30 19:32 | NUR ---
Bowels Pt still not passing gas or having BM. MD aware and xray ordered this AM. Pt encouraged to continue liquids and increase walking. Pt able to walk multiple times in hallways with TRAY SETTER. Pain well controlled during shift with SAMPLER AND TEST PREPARER. Pt declined to have INSURANCE ADVISOR during shift and spot checks were performed. Pt able to maintain safe O2 levels. Care continues.
[2016-07-31] VITALS (9 sets, daily range): BP systolic 144–166; BP diastolic 72–81; PULSE 71–86; RESP 16–20; O2SAT 90–92
[2016-07-31] MEDS: Heparin 5,000 Unit/mL Inj SUBQ SCH ×3 (00:11→16:43)
--- NOTE | 2016-07-31 00:24 | NUR ---
Lab Draw/ Vitals Refusal This evening patient states that he does not wish to have vitals checked at 0030, as well as labs to be drawn in the am. Despite further education patient still refused. Lab has been notified and are aware. Will continue to monitor.
[2016-07-31] MEDS: Insulin Human REGular 300 Unit/3 mL Inj SUBQ SCH ×4 (01:34→20:30)
--- NOTE | 2016-07-31 02:58 | NUR ---
Bowels Patient continues to complain of 7/10 LLQ abdominal pain, and denies being able to pass any flatus. Pt states that he has been belching. Bowel tones have been hypoactive and absent at times. Denies any N/V. Pt continues to ambulate the hallway when awake. Care continues
[2016-07-31] MEDS: HYDROmorphone PCA 0.2 mg/mL 30 mL Inj IV PRN (06:13)
--- NOTE | 2016-07-31 07:30 | NUR ---
Patient reported passing gas this morning. Addendum: 07/31/16 at 0931 by BARRY DIAS CNA Amended: Links added.
--- NOTE | 2016-07-31 07:49 | PCM.PNSURG ---
Subjective Visit Information: Reason for Visit Left Renal Mass Surgery/Surgery Date Post-Op Day # Date of Admission: Jul 25, 2016 at 14:55 Hospital Day # Subjective: passed flatus x2 this am, no n/v Objective Objective Awake Sitting up in chair, lao in Vital Sign- Last 8 Hours Date Time Temp Pulse Resp B/P Pulse Ox O2 Delivery O2 Flow Rate FiO2 07/31/16 06:53 85 07/31/16 06:15 36.2 77 20 166/73 91 Room Air Intake and Output- Last 8 Hour 07/31/16 Cumulative From/Thru 07:00 07/22/16 11:51 - 07/31/16 06:15 Intake Total 1283 ml 58691 ml Output Total 1800 ml 13374 ml Balance -517 ml 06235 ml Intake Oral 250 ml 3870 ml IV Total 1033 ml 14791 ml Output Urine Total 1800 ml 78748 ml Estimated Blood Loss 300 ml # Bowel Movements 0 0 Result Diagram: 07/30/16 0547 07/29/16 0520 Assessment & Plan Impression POD #6 s/p L nephrectomy and segmental colon resection DM Problems: Plan Advance diet Ambulate Pt wants to hold on to SPEECH THERAPIST TECHNICIAN for 1 more day Lao per Urology VTE Prophylaxis: Sub-Q Heparin (Unfractionated) Resuscitation Status: CPR: Attempt Resuscitation Daryl Bennett MD Jul 31, 2016 07:49
[2016-07-31] MEDS: Lactated Ringer's 1,000 ML IV SCH (09:22)
[2016-07-31] MEDS ORDERED: 0.9% Sodium Chloride 0 ML ONE (09:38)
[2016-07-31] MEDS ORDERED: HYDROmorphone 1 mg/mL Inj IVPUSH PRN (12:40)
--- NOTE | 2016-07-31 12:42 | PCM.PNSURG ---
Subjective Date of Service: Jul 31, 2016 Date of Service: Jul 31, 2016 Visit Information: Reason for Visit Left Renal Mass Surgery/Surgery Date Post-Op Day # 6 Date of Admission: Jul 25, 2016 at 14:55 Hospital Day # 7 Subjective: Mr Harrison states he has passed a fair amount of flatus this AM. He denies N/V. His pain is controlled w MOTHERCRAFT NURSE. He has ambulated. He practices IS. Postop General: No Complaints Gastrointestinal: Good Appetite Pain Management: MOTHERCRAFT NURSE without Basal Objective Vital Sign- Last 8 Hours Date Time Temp Pulse Resp B/P Pulse Ox O2 Delivery O2 Flow Rate FiO2 07/31/16 10:10 36.8 79 18 163/81 90 Room Air 07/31/16 10:05 16 90 07/31/16 08:48 86 07/31/16 06:53 85 07/31/16 06:15 36.2 77 20 166/73 91 Room Air Intake and Output- Last 8 Hour 07/31/16 Cumulative From/Thru 07:00 07/22/16 11:51 - 07/31/16 06:15 Intake Total 1283 ml 20940 ml Output Total 1800 ml 48711 ml Balance -517 ml 17746 ml Intake Oral 250 ml 3870 ml IV Total 1033 ml 12877 ml Output Urine Total 1800 ml 28111 ml Estimated Blood Loss 300 ml # Bowel Movements 0 0 Abdomen: Soft, Appropriately tender (wound c/d/i) Extremities: Warm Neuro: Cranial Nerves 2-12 nl Catheters: Urethral 2 Way Lao (clear) Result Diagram: 07/30/16 0547 07/29/16 0520 Assessment & Plan Impression POD# 6 LEFT radical Nx, segmental colectomy Problems: Plan Very much appreciate general surgery management I spoke w pt re plan of care today - DC MOTHERCRAFT NURSE - Start Percocet 5/325 and IV dilaudid 1 mg q4h PRN severe pain - ADAT - Ambulate - IS Tomorrow, as I discussed pt pt - DC lao at 6 AM Likely DC planning tomorrow VTE Prophylaxis: Sub-Q Heparin (Unfractionated) Resuscitation Status: CPR: Attempt Resuscitation Harriett Serrano MD Jul 31, 2016 12:42
[2016-07-31] MEDS: oxyCODONE-Acetamin 5-325 mg Tablet PO PRN ×3 (13:47→18:40)
--- NOTE | 2016-07-31 14:43 | NUR ---
Pain, WORD PROCESSING SUPERVISOR, Activity Pt reports 7/10 pain despite use of WORD PROCESSING SUPERVISOR Dilaudid. Discussed plan to switch to oral pain meds and discontinue use of WORD PROCESSING SUPERVISOR. Pt requests to do this around lunch time. WORD PROCESSING SUPERVISOR discontinued, switched to Percocet x2 tabs. Pt encouraged and receptive to ambulating has been ambulating hallways several times this shift w/ steady gait, passing gas. Bed down and locked, call light w/in reach and used appropriately.
--- NOTE | 2016-07-31 16:14 | NUR ---
Social Work- Readiness for Discharge Data: EMR reviewed. Pt is on day 6 of hospitalization for a left renal mass per H&P. Per RN notes, pt is independent and ambulating in room and the sanchez. Pt is not eligible for HH needs. Pt reports having neighbors to assist at home. No anticipated discharge needs at this time. SW will continue to follow for discharge needs. Assessment: [place] base. Plan: Home alone via POV. No anticipated discharge needs at this time. SW will continue to follow. KESHA Kirby
--- NOTE | 2016-07-31 18:51 | NUR ---
patient has ambulated halls multiple times this shift without difficulty. Addendum: 07/31/16 at 1852 by BARRY DIAS CNA Amended: Links added.
[2016-08-01] MEDS: oxyCODONE-Acetamin 5-325 mg Tablet PO PRN ×3 (00:42→09:25)
[2016-08-01] MEDS: Heparin 5,000 Unit/mL Inj SUBQ SCH ×2 (00:43→09:15)
[2016-08-01] MEDS: Insulin Human REGular 300 Unit/3 mL Inj SUBQ SCH ×2 (02:30→08:30)
[2016-08-01 05:40] VITALS: BP 163/83; PULSE 68; RESP 16; O2SAT 96
--- NOTE | 2016-08-01 05:43 | NUR ---
Larsen catheter Larsen catheter D/C'd at 0530. Instructed Pt to call when needing to void for the 1st time. Advised of bladder scan to be done.
--- NOTE | 2016-08-01 08:46 | PCM.PNSURG ---
Subjective Date of Service: Aug 01, 2016 Date of Service: Aug 01, 2016 Visit Information: Reason for Visit Left Renal Mass Surgery/Surgery Date Post-Op Day # 7 Date of Admission: Jul 25, 2016 at 14:55 Hospital Day # 8 Subjective: Mr Harrison reports his pain is overall controlled. He ambulates w/o assist. He is on the commode at the time of interview this morning. He has no concerns. He is tolerating diet w/o n/v. Postop General: No Complaints Gastrointestinal: Good Appetite Pain Management: PO, IV Push Objective Vital Sign- Last 8 Hours Date Time Temp Pulse Resp B/P Pulse Ox O2 Delivery O2 Flow Rate FiO2 08/01/16 05:40 36.8 68 16 163/83 96 Room Air Intake and Output- Last 8 Hour 08/01/16 Cumulative From/Thru 07:00 07/22/16 11:51 - 08/01/16 05:37 Intake Total 55919 ml Output Total 1000 ml 37145 ml Balance -1000 ml 42467 ml Intake Oral 5670 ml IV Total 87608 ml Output Urine Total 1000 ml 79893 ml Estimated Blood Loss 300 ml # Bowel Movements 0 General: Alert Catheters: None Result Diagram: 07/30/16 0547 07/29/16 0520 Assessment & Plan Impression POD# 7 Problems: Plan We talked about DC planning today, soonest after lunch We discussed activity restrictions and f/u care VTE Prophylaxis: Sub-Q Heparin (Unfractionated) Resuscitation Status: CPR: Attempt Resuscitation Harriett Serrano MD Aug 01, 2016 08:46
--- NOTE | 2016-08-01 09:32 | PCM.PNSURG ---
Subjective Date of Service: Aug 01, 2016 Visit Information: Reason for Visit Left Renal Mass Surgery/Surgery Date Post-Op Day # Date of Admission: Jul 25, 2016 at 14:55 Hospital Day # Subjective: Patient upright and in good spirits upon examination today. He states that he has some lingering pain and swelling about the lateral edge of up sub-costal incision. He states that he was able void spontaneously today with 66ml post void residual. He has yet to have a BM post operatively but has been passing flatus with regularity. He has been ambulating independently in the hallway without much difficulty. Objective Objective GEN: A/O x3 pleasant cooperative male in mild acute distress secondary to expected post surgical pain Neck: prodigious mendoza obscures neck, supple non tender HEENT: mucous membranes pink and moist, PERRL, EOMI CV: Harsh systolic ejection murmur consistent with history of bicuspid AV, RRR Resp: Lungs CTA BL, no wheezing rales or rhonchi Abdomen: soft, moderate tenderness to palpation at lateral border of subcostal incision with some mild associated swelling and erythema, no purulence or active discharge. BS+ 4Q Extr: no cyanosis clubbing or edema Neuro: CN 2-12 grossly intact, no focal neurologic deficit. Vital Sign- Last 8 Hours Date Time Temp Pulse Resp B/P Pulse Ox O2 Delivery O2 Flow Rate FiO2 08/01/16 05:40 36.8 68 16 163/83 96 Room Air Intake and Output- Last 8 Hour 08/01/16 Cumulative From/Thru 07:00 07/22/16 11:51 - 08/01/16 05:37 Intake Total 82437 ml Output Total 1000 ml 65311 ml Balance -1000 ml 92117 ml Intake Oral 5670 ml IV Total 90177 ml Output Urine Total 1000 ml 55053 ml Estimated Blood Loss 300 ml # Bowel Movements 0 Result Diagram: 07/30/16 0547 07/29/16 0520 Assessment & Plan Impression Patient with expected post operative incisional pain. Wound has some erythema and swelling about the lateral subcostal edge, but does not appear to be infected and will not preclude DC. Patient has follow up appointment scheduled. He was given instructions about incisional care and what circumstances should lead him to seek further help. Problems: Plan -OK to DC from surgical perspective -Follow up with surgery in 1 week -Patient will follow up with urology as an outpatient VTE Prophylaxis: Sub-Q Heparin (Unfractionated) Resuscitation Status: CPR: Attempt Resuscitation Attending Statement: I agree with Dr. Roque's assessment and plan. Dinesh Roque DO Aug 01, 2016 09:32 Daryl Bennett MD Aug 28, 2016 17:43
[2016-08-01 10:08] VITALS: PULSE 88
[2016-08-01 10:11] VITALS: BP 135/72; PULSE 69; RESP 18; O2SAT 95
--- NOTE | 2016-08-01 11:12 | PCM.DISURG ---
Surgical Discharge Instruction Date of Service Aug 01, 2016 Dates of Hospitalization Date of Hospital Admission Jul 25, 2016 at 14:55 Providers Admitting Physician: Harriett Serrano MD Primary Care Physician: Doc Vázquez MD Attending Physician: Harriett Serrano MD Discharge Diagnosis Discharge Diagnosis Renal cell cancer Post Operative diagnosis Renal cell cancer Activity Discharge Activity-General: Be up and about, Balance rest and activity, No lifting >10 pounds for 4-6 weeks, No driving while taking narcotic Dressing and Incisional Care Hygiene: May shower, NO bathtub, hot tub or whirlpool Follow Up Plan Follow Up Plan F/U 1 wk urology Call your provider for: Fever, Chills, Vomiting, Discharge @ incision, pus discharge Harriett Serrano MD Aug 01, 2016 11:12
--- NOTE | 2016-08-01 11:16 | PCM.DC.SUR ---
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 Postoperatively, he regained bowel function and his diet was adjusted accordingly. His pain regimen was transitioned from FEATURE WRITER to Percocet. By the time of discharge, he was ambulating, passing flatus, and had tolerable pain. Pathology: Renal cell cancer Disposition: Home Follow-up Plan: 1 wk urology Amlodipine (Amlodipine) 2.5 Mg Tablet 2.5 MG PO DAILY (Reported) Aspirin (Aspirin) 81 Mg Tablet 81 MG PO DAILY (Reported) Metformin (Glucophage) 1,000 Mg Tablet 1,000 MG PO BID (Reported) Metoprolol Tartrate (Metoprolol Tartrate) 50 Mg Tablet 75 MG PO BID (Reported) Pravastatin (Pravastatin) 20 Mg Tablet 20 MG PO DAILY (Reported) Harriett Serrano MD Aug 01, 2016 11:16
--- NOTE | 2016-08-01 13:43 | NUR ---
Urination, Discharge Patient voided into toilet after lao catheter removal, patient reminded to use collection device in order to measure urine output accurately. Patient bladder scanned after urination, residual amount 66ml. Patient later voided into toilet again, patient again reminded to use collection device in order to measure urine. Orders for discharge were received. Patient made aware of plan to discharge and was agreeable to go. Patient given information regarding diagnosis and treatment, signs and symptoms to be aware of, follow up instructions, surgical site care, information on new medications and his scripts. The patient signified understanding of this medication and his asymptomatic IV was removed intact. The patient was dressed in his own clothes and his belongings gathered. The patient then ambulated to the main entrance where he entered the private vehicle of a friend. At the time of discharge the patient was alert and oriented, with no compliant of out of control pain, nausea or other difficulty. Bowel tone present, patient passing gas. Surgical site intact.
--- NOTE | 2016-08-01 14:02 | NUR ---
Social Work- Discharge Data: EMR reviewed. Pt is on day 6 of hospitalization for a left renal mass per H&P. Patient to discharge today. Per RN notes, pt is independent and ambulating in room and the sanchez. No discharge needs. Assessment: [place]. Plan: Pt to discharge home via POV. No discharge needs. KESHA Kirby
--- NOTE | 2016-08-01 16:08 | NUR ---
Social Work-late entry: SW received a call from pt's brother Benny Soto [phone] regarding information about pt's pain medications. Brother state that he has been told by [facility] in [place] that pt's insurance will not cover pain medications. SW called [facility] who states that it says that this needs to be billed through Part D [facility] and HS won't pay for this. SW found out, out of pocket cost for pain medication is $16.00. LOKI spoke with UR specialist Jo-Ann who spoke with insurance verification and pt does nt have Part D. SW called and spoke with [place] authority [phone] ext. [phone]. Worker informed SW that pt was on [facility] HO until the end of June and then become Medicare eligible and was told he needed to enroll in part D drug coverage. Worker informed SW that [facility] does not pay for medications once pt is eligible for MCR. SW called brother Benny damico and provided him with above information. SW explained brother will have to pay privately for medications and will need to get part D. Brother agreeable and will pay for medications at [facility]. Yessi Tam MSW
== END 2016-08-01 13:23 | disposition home or self-care (01) | DRG 658 ==
LOC: SAS 05:46 → EDSTATUS 07:15 → OSC 14:55 → UNDODISIN 08-01 11:17
PROVIDERS: ADMIT Urology; ATTEND Urology
PROC: 0DBL0ZZ Excision of Transverse Colon, Open Approach (ICD-10-PCS; 2016-07-25)
PROC: 0DNL0ZZ Release Transverse Colon, Open Approach (ICD-10-PCS; 2016-07-25)
PROC: 0TT10ZZ Resection of Left Kidney, Open Approach (ICD-10-PCS; principal; 2016-07-25 07:30)
DX: C64.2 Malignant neoplasm of left kidney, except renal pelvis (principal); K66.0 Peritoneal adhesions (postprocedural) (postinfection); E11.9 Type 2 diabetes mellitus without complications; I10 Essential (primary) hypertension; Z79.84 Long term (current) use of oral hypoglycemic drugs; Z87.891 Personal history of nicotine dependence; Z53.31 Laparoscopic surgical procedure converted to open procedure